=== PATIENT | female | born 1995 | race Caucasian/White ===

== ENCOUNTER 2019-06-23 10:53 | Emergency (ER) | payer OTHER, SELFPAY ==
[2019-06-23 11:09] VITALS: BP 111/63; PULSE 83; RESP 16; TEMP 36.8; O2SAT 98
--- NOTE | 2019-06-23 11:21 | ED.URI ---
HPI - URI/Sore Throat General Chief Complaint: Unspecified Stated Complaint: sore throat Time Seen by Provider: 06/23/19 11:13 Source: patient and RN notes reviewed Mode of arrival: ambulatory Limitations: no limitations History of Present Illness HPI Narrative: Pt is a 23 y/o female who presents to the ED with c/o sore throat starting 4 days ago. She notes that her pain is aggravated with swallowing. Pt states that she has also had a mild cough, rhinorrhea, sinus congestion, and chills, but denies any fever. She denies any chance of being . MD elicited complaint: sore throat Onset (ago): day(s) (4) Exacerbating factors: swallowing Associated symptoms: chills, rhinorrhea, nasal congestion and cough Related Data Allergies Allergy/AdvReac Type Severity Reaction Status Date / Time strawberry Allergy Severe Anaphylactic Verified 06/23/19 11:26 Shock amoxicillin Allergy Unknown RASH Verified 06/23/19 11:26 cinnamon Allergy Unknown Anaphylactic Verified 06/23/19 11:26 Shock Review of Systems Review of Systems: All systems reviewed & are unremarkable except as noted in HPI and below Constitutional: Constitutional: Reports chills and Denies fever(s) ENT: Reports nasal congestion, Reports nasal discharge and Reports sore throat Respiratory: Respiratory: Reports cough PMFSH Past Medical History Medical History (Updated 06/23/19 @ 12:01 by Jt Butler DO) URI (upper respiratory infection) UTI (urinary tract infection) Surgical History Surgical History No significant past surgical history Social History Social History Smoking status: Former smoker Gender identity (if verbalized by the patient): Female Exam Narrative: Exam Narrative: APPEARANCE: No acute distress, nontoxic, resting in bed EYES: EOMI HEENT: Normocephalic, atraumatic, TMs clear bilaterally, bilateral turbinates boggy, mild erythema no exudate posterior pharynx bilateral tonsils, uvula midline, no trismus Neck: Supple, no cervical lymphadenopathy RESPIRATORY: No respiratory distress Clear to auscultation bilaterally with no rhonchi wheezing or rales. CARDIOVASCULAR: Regular rate and rhythm without murmurs rubs or gallops. ABDOMINAL: Soft, nontender, nondistended, no rebound or guarding MUSCULOSKELETAl: Moves all extremities. No clubbing, cyanosis or edema. NEURO: Awake and alert. Following commands, speech normal, no focal deficits SKIN:: Warm, dry. No rashes lesions or abrasions PSYCHIATRIC: Normal affect/mood, Course Course Emergency Course: Reviewed old records Discussed with patient results of workup and diagnosis. Discussed need for follow-up with primary care, proper use of medication, and reasons to return to the emergency department. Patient understands and agrees to current treatment plan Vital Signs Vital signs: Vital Signs Temperature 98.3 F 06/23/19 11:09 Pulse Rate 83 06/23/19 11:09 Respiratory Rate 16 06/23/19 11:09 Blood Pressure 111/63 06/23/19 11:09 Pulse Oximetry 98 06/23/19 11:09 Temperature 98.3 F 06/23/19 11:09 Pulse Rate 83 06/23/19 11:09 Respiratory Rate 16 06/23/19 11:09 Blood Pressure 111/63 06/23/19 11:09 Pulse Oximetry 98 06/23/19 11:09 MDM - URI/Sore Throat Lab Data Labs: Influenza A Screen Negative Reference Range: Negative Influenza B Screen Negative Reference Range: Negative Discharge Plan Discharge Clinical Impression: Pharyngitis Patient Disposition: Home, Self-Care Condition: Stable Instructions: Antibiotic Form, Pharyngitis (ED) Additional Instructions: Return for increasing pain, inability to swallow, fever or any other symptoms of concern Prescriptions: New ibuprofen [IBU] 600 mg tablet 600 mg PO Q6H PRN (Reason: pain) Qty: 20 RF: 0 azithromycin [Zithromax Z-Brent] 250 mg tablet
[2019-06-23] MEDS: IBUPROFEN 600 MG TABLET PO (11:26)
== END 2019-06-23 12:25 | disposition home or self-care (01) ==
PROVIDERS: Emergency Provider Emergency Medicine
DX: J02.9 Acute pharyngitis, unspecified (principal); Z87.440 Personal history of urinary (tract) infections; Z87.891 Personal history of nicotine dependence
CPT/HCPCS: 87081; 87804; 87880; 99283; A9270

== ENCOUNTER 2019-07-09 19:35 | Emergency (ER) | payer OTHER, SELFPAY ==
[2019-07-09 19:43] VITALS: BP 129/72; PULSE 62; RESP 17; TEMP 37; O2SAT 100
[2019-07-09 20:00] VITALS: BP 134/84; PULSE 64; RESP 18; TEMP 36.2; O2SAT 100
[2019-07-09 20:23] LABS: Add Urine Microscopic? NO; Appearance Urine Clear (Clear); Bilirubin Urine Negative (Negative); Blood Urine Negative (Negative); Color Urine Yellow (Yellow); Glucose Urine UA Negative (Negative); Ketones Urine Negative (Negative); Leukocyte Esterase Ur Negative LEU/UL (Negative); Nitrate Urine Negative (Negative); Protein Urine Negative (Negative); Urobilinogen Urine Negative mg/dL (<2.0)
--- NOTE | 2019-07-09 20:24 | ED.ABDPAIN ---
HPI - Abdominal Pain General Chief Complaint: Abdominal Pain Stated Complaint: abd pain Time Seen by Provider: 07/09/19 20:06 Source: patient and RN notes reviewed Mode of arrival: ambulatory Limitations: no limitations History of Present Illness HPI narrative: Pt is a 23 y/o female who presents to the ED with c/o intermittent lt sided ABD pain starting roughly 2 weeks ago. She notes that she was recently evaluated in the [facility] ED for a sore throat. Pt states that she is still currently having swelling in the lt side of her throat. She notes that she has had intermittent lt sided ABD pain over the past several weeks. Pt states that she has recently been having nausea and diarrhea shortly after she eats. She denies any fever, vomiting, dysuria, hematuria. Pt states that she has been taking Ibuprofen for her symptoms. MD elicited complaint: abdominal pain Onset (ago): week(s) (2) Pain Consistency: intermittent Location: other (lt side of ABD) Associated symptoms: nausea, diarrhea and other (swelling in lt side of throat) Treatments prior to arrival: NSAIDs (Ibuprofen) Related Data Allergies Allergy/AdvReac Type Severity Reaction Status Date / Time strawberry Allergy Severe Anaphylactic Verified 06/23/19 11:26 Shock amoxicillin Allergy Unknown RASH Verified 06/23/19 11:26 cinnamon Allergy Unknown Anaphylactic Verified 06/23/19 11:26 Shock Review of Systems Review of Systems: Narrative: CONSTITUTIONAL: Denies fever, chills, or sweats. ENT: Denies rhinorrhea, congestion, sore throat, or otalgia. Reports swelling in lt side of throat. GASTROINTESTINAL: Reports lt sided abdominal pain, nausea, and diarrhea. Denies vomiting. GENITOURINARY: Denies dysuria or hematuria. SKIN: Denies rash or itching. All systems reviewed & are unremarkable except as noted in HPI and below PMFSH Past Medical History Medical History URI (upper respiratory infection) UTI (urinary tract infection) Surgical History Surgical History (Updated 07/09/19 @ 20:35 by Omer Metzger) Hx of cholecystectomy Social History Social History Smoking status: Former smoker Gender identity (if verbalized by the patient): Female Exam Narrative: Exam Narrative: GENERAL: Well-appearing, obese, and in no acute distress. HEAD: Normocephalic, atraumatic. EYES: PERRLA and EOMI. ENT: Nares clear, no rhinorrhea or epistaxis. Mucous membranes moist. Lt tonsillar edema. No erythema. No tonsillar exudate. Uvula midline. No trismus. No petechia of the hard palate. NECK: Supple. No cervical lymphadenopathy. CHEST: Clear to auscultation. No respiratory distress. HEART: Regular rate and rhythm. No murmur heard. Normal peripheral pulses. ABDOMEN: Soft, nontender, nondistended, normal active bowel sounds. No flank tenderness. EXTREMITIES: Normal range of motion. No edema. SKIN: Warm, dry, no rash. NEURO: No focal deficits. Alert and oriented. Course Vital Signs Vital signs: Vital Signs Temperature 37.0 C 07/09/19 19:43 Pulse Rate 62 07/09/19 19:43 Respiratory Rate 17 07/09/19 19:43 Blood Pressure 129/72 07/09/19 19:43 Pulse Oximetry 100 07/09/19 19:43 Temperature 36.2 C L 07/09/19 20:00 Pulse Rate 64 07/09/19 20:00 Respiratory Rate 18 07/09/19 20:00 Blood Pressure 134/84 07/09/19 20:00 Pulse Oximetry 100 07/09/19 20:00 MDM - Abdominal Pain MDM Narrative Medical decision making narrative: Patient presented for chronic intermittent diarrhea and abdominal cramping which has resolved at the time of assessment. Patient has had no vomiting or fever. No recent travel. Patient states her symptoms seem to come and go and this is been going on for several weeks. Patient well-appearing, benign abdominal exam and stable vital signs. Doubt appendicitis as she has no fever, no right lower quadrant pain. No evidence of UTI. No hematuria
[2019-07-09 20:25] LABS: Basophils Absolute Auto 0.1 K/mm3 (0.0-0.1); Basophils Percent Auto 0.7 % (0.2-1.2); Eosinophils Absolute Auto 0.3 K/mm3 (0-0.3); Eosinophils Percent Auto 2.9 % (0-4.4); Hematocrit 41.5 % (37.0-47.0); Immature Granulocyte Absolute 0.03 K/mm3 (0.00-0.031); Immature Granulocyte Percent A 0.3 % (0-0.5); Lymphocytes Absolute Auto 3.37 K/mm3 (0.9-3.2); Lymphocytes Percent Auto 31.7 % (18.3-44.2); Mean Corpuscular HGB Conc 31.3 g/dl (32-36); Mean Corpuscular Hemoglobin 25.9 pg (26-34); Mean Corpuscular Volume 82.8 fl (80-100); Mean Platelet Volume 10.7 fl (7.4-10.4); Monocytes Absolute Auto 0.8 K/mm3 (0.1-0.6); Monocytes Percent Auto 7.2 % (2.6-8.5); Neutrophils Absolute Auto 6.1 K/mm3 (1.3-6.7); Neutrophils Percent Auto 57.2 % (45.5-73.1); Platelet Count Result 235 k/mm3 (150-375); Red Blood Count 5.01 M/mm3 (4.2-5.4); Red Cell Distribution Width 13.7 % (11.5-14.5); White Blood Count 10.6 K/mm3 (4.5-10.0)
[2019-07-09 20:37] LABS: Alanine Aminotransferase 33 U/L (4-35); Albumin Level 4.5 g/dL (3.5-5.1); Alkaline Phosphatase 60 U/L (38-126); Aspartate Amino Transferase 32 U/L (14-36); Bilirubin,Total 0.5 mg/dL (0.2-1.3); Blood Urea Nitrogen 8 mg/dL (7-17); Calcium 9.5 mg/dL (8.4-10.2); Carbon Dioxide 25 mmol/L (22-30); Chloride 101 mmol/L (98-107); Estimated CRCL calculation 153 ml/min; Estimated Glomerular Filt Rate > 60; Glucose 100 mg/dL (65-105); Lipase 51 U/L (23-300); Potassium 4.2 mmol/L (3.4-5.0); Sodium 139 mmol/L (137-145)
[2019-07-09 21:08] VITALS: BP 132/81; PULSE 91; RESP 16; TEMP 36.3; O2SAT 100
== END 2019-07-09 21:21 | disposition home or self-care (01) ==
PROVIDERS: Emergency Medicine; Emergency Provider Emergency Medicine
DX: R19.7 Diarrhea, unspecified (principal)
CPT/HCPCS: 36415; 80053; 81003; 81025; 83690; 85025; 99283

== ENCOUNTER 2019-09-19 21:46 | Emergency (ER) | payer OTHER, SELFPAY ==
[2019-09-19 21:49] VITALS: BP 135/75; PULSE 84; RESP 18; TEMP 36.6; O2SAT 100
--- NOTE | 2019-09-19 23:38 | ED.GENADULT ---
HPI - General Adult General Chief complaint: Unspecified Stated complaint: sinus congestion Time Seen by Provider: 09/19/19 22:17 Source: patient Mode of arrival: ambulatory Limitations: no limitations History of Present Illness HPI narrative: Patient is a 23-year-old female who presents to the emergency department with complaint of sinus pressure and headache. Patient reports onset of symptoms approximately 5 days ago. Patient states she has a history of seasonal allergies. She has noticed sinus pressure and headache that she describes as throbbing. She has had postnasal drip and some itching. Patient denies any fever, chills, sore throat, runny nose, cough, or other illness symptoms. Patient has been using [id number] Flonase spray and Mucinex for symptoms without relief. Patient contacted her primary care and cannot be seen until September 29. Onset (ago): day(s) Location: head and face Related Data Allergies Allergy/AdvReac Type Severity Reaction Status Date / Time strawberry Allergy Severe Anaphylactic Verified 09/19/19 23:30 Shock amoxicillin Allergy Unknown RASH Verified 09/19/19 23:30 cinnamon Allergy Unknown Anaphylactic Verified 09/19/19 23:30 Shock Review of Systems Review of Systems: All systems reviewed & are unremarkable except as noted in HPI and below Constitutional: Constitutional: Denies chills and Denies fever(s) ENT: Denies otalgia, Reports facial pain, Reports headache(s), Reports epistaxis, Denies nasal discharge, Reports post nasal drip, Reports sinus pain, Reports sinus pressure and Denies sore throat Respiratory: Respiratory: Denies cough Gastrointestinal: Gastrointestinal: Denies diarrhea, Denies nausea and Denies vomiting PMFSH Past Medical History Medical History URI (upper respiratory infection) UTI (urinary tract infection) Surgical History Surgical History Hx of cholecystectomy Social History Social History Smoking status: Former smoker Gender identity (if verbalized by the patient): Female Exam Const: General: cooperative, no acute distress and alert Nutritional Appearance: well nourished Orientation/consciousness: patient oriented x3 Limitations: no limitations HENMT: Ears: TM's normal bilaterally General nose exam: Normal external nose present and Normal nares present Face and sinus: sinuses nontender Resp: Effort & Inspection: normal respiratory effort Auscultation: clear to auscultation bilaterally Cardio: Rate: regular rate Rhythm: regular rhythm Skin: General skin exam: normal color Neuro: General: patient oriented x3 Cognition (Neuro): normal cognition Speech: normal speech Extrem: General: normal to inspection, full ROM and no clubbing, cyanosis or edema Psych: Mental Status: mental status grossly normal Affect: normal affect Attitude: cooperative Course Course Emergency Course: Patient with symptoms consistent with allergic sinusitis. Counseled patient on continued use of current medications and will add decongestant and allergy medications for additional symptom relief. Advised primary care follow-up at her upcoming appointment. Patient advised she does not have an infection at this time and does not require antibiotics. Vital Signs Vital signs: Vital Signs Temperature 97.9 F 09/19/19 21:49 Pulse Rate 84 09/19/19 21:49 Respiratory Rate 18 09/19/19 21:49 Blood Pressure 135/75 09/19/19 21:49 Pulse Oximetry 100 09/19/19 21:49 Temperature 97.9 F 09/19/19 21:49 Pulse Rate 74 09/20/19 00:14 Respiratory Rate 15 09/20/19 00:14 Blood Pressure 134/64 09/20/19 00:14 Pulse Oximetry 100 09/20/19 00:14 Medical Decision Making Vital Signs Vital Signs: Vital Signs Temperature 97.9 F 09/19/19 21:49 Pulse Rate 84 09/19/19 21:49
[2019-09-20 00:14] VITALS: BP 134/64; PULSE 74; RESP 15; O2SAT 100
== END 2019-09-20 00:50 | disposition home or self-care (01) ==
PROVIDERS: Emergency Provider Emergency Medicine
DX: J30.9 Allergic rhinitis, unspecified (principal); Z87.891 Personal history of nicotine dependence; Z87.440 Personal history of urinary (tract) infections
CPT/HCPCS: 99283

== ENCOUNTER 2019-10-25 22:02 | Emergency (ER) | payer OTHER, SELFPAY ==
--- NOTE | ~2019-10-25 | XR_ITS ---
EXAMINATION: XR ankle LT 2V DATE: 10/25/2019 22:27 INDICATION: Left ankle pain and swelling TECHNIQUE: Two views of the left ankle are obtained.. COMPARISON: None. FINDINGS: There is no fracture, dislocation, or subluxation. The bones, soft tissues, and joint space s are normal. IMPRESSION: 1. No acute osseous abnormality. Reviewed, dictated and finalized at location A.
[2019-10-25 22:05] VITALS: BP 117/74; PULSE 116; RESP 17; TEMP 37.2; O2SAT 99
--- NOTE | 2019-10-25 22:17 | ED.LOWEXIN ---
HPI - Extremity Injury (Lower) General Chief Complaint: Extremity Injury, Lower Stated Complaint: left ankle injury Time Seen by Provider: 10/25/19 22:13 History of Present Illness HPI Narrative: Twisted her ankle earlier today. Pain in lateral ankle with weight bearing. No pain at rest. Associated with tingling in the foot. No deformity. No prior injury. Related Data Allergies Allergy/AdvReac Type Severity Reaction Status Date / Time strawberry Allergy Severe Anaphylactic Verified 09/19/19 23:30 Shock amoxicillin Allergy Unknown RASH Verified 09/19/19 23:30 cinnamon Allergy Unknown Anaphylactic Verified 09/19/19 23:30 Shock Review of Systems Review of Systems: All systems reviewed & are unremarkable except as noted in HPI and below PMFSH Past Medical History Medical History URI (upper respiratory infection) UTI (urinary tract infection) Surgical History Surgical History Hx of cholecystectomy Social History Social History Smoking status: Former smoker Gender identity (if verbalized by the patient): Female Exam Const: General: no acute distress and alert Orientation/consciousness: patient oriented x3 HENMT: Head: normal to inspection Resp: Effort & Inspection: normal respiratory effort Cardio: Other: 2+ DP Skin: General skin exam: normal color Wounds: no wounds Neuro: General: patient oriented x3 and moves all extremities Speech: normal speech Extrem: Other: Swelling over left lateramaleolus. Tender over ATFL Course Vital Signs Vital signs: Vital Signs Temperature 37.2 C 10/25/19 22:05 Pulse Rate 116 H 10/25/19 22:05 Respiratory Rate 17 10/25/19 22:05 Blood Pressure 117/74 10/25/19 22:05 Pulse Oximetry 99 10/25/19 22:05 Temperature 36.7 C 10/25/19 23:10 Pulse Rate 101 H 10/25/19 23:10 Respiratory Rate 14 10/25/19 23:10 Blood Pressure 115/62 10/25/19 23:10 Pulse Oximetry 95 10/25/19 23:10 MDM - Extremity Injury (Lower) Differential Diagnosis Differential diagnosis: Likely ankle sprain and strain and ankle fracture Imaging Data Attestation: I personally reviewed and interpreted this imaging study as follows: My impression: No fracture. Discharge Plan Discharge Clinical Impression: Left ankle sprain Patient Disposition: Home, Self-Care Condition: Stable Instructions: Ankle Sprain (ED) Prescriptions: No Action nitrofurantoin monohyd/m-cryst [Macrobid] 100 mg capsule 100 mg PO Q12H 5 Days Qty: 10 RF: 0 lidocaine 4 % adhesive patch,medicated 1 patch TOPICAL Q24H 10 Days Qty: 10 RF: 0 phenazopyridine [Pyridium] 100 mg tablet 100 mg PO TID 5 Days Qty: 15 RF: 0 ibuprofen 400 mg tablet 400 mg PO TID PRN (Reason: fever or pain) 10 Days Qty: 30 RF: 0 acetaminophen [Tylenol] 325 mg capsule 325 mg PO ONCE 7 Days Qty: 30 RF: 0 ibuprofen 400 mg tablet 400 mg PO TID PRN (Reason: fever or pain) 10 Days Qty: 30 RF: 0 ibuprofen [IBU] 600 mg tablet 600 mg PO Q6H PRN (Reason: pain) Qty: 20 RF: 0 azithromycin [Zithromax Z-Brent] 250 mg tablet See Rx Instructions .ROUTE .COMPLEX Qty: 6 RF: 0 dicyclomine 10 mg capsule 10 mg PO BID 5 Days Qty: 10 RF: 0 fexofenadine [[place] Allergy] 180 mg tablet 180 mg PO DAILY Qty: 30 RF: 0 pseudoephedrine HCl [Sudafed 12 Hour] 120 mg tablet extended release 120 mg PO Q12H PRN (Reason: nasal congestion) Qty: 20 RF: 0 montelukast [Singulair] 10 mg tablet 10 mg PO DAILY Qty: 30 RF: 0 Interventions: Discharge Disposition Last Done: 10/25/19 23:10 IV Stop Time Documented Last Done: 10/25/19 23:12 Follow-up/Referrals: UNKNOWN,DOCTOR [Primary Care Provider] - Discharge Date/Time: 10/25/19 23:12
[2019-10-25 23:10] VITALS: BP 115/62; PULSE 101; RESP 14; TEMP 36.7; O2SAT 95
== END 2019-10-25 23:12 | disposition home or self-care (01) ==
PROVIDERS: Emergency Provider Emergency Medicine
DX: S93.402A Sprain of unspecified ligament of left ankle, initial encounter (principal); Z87.440 Personal history of urinary (tract) infections; Z87.891 Personal history of nicotine dependence; X50.9XXA Other and unspecified overexertion or strenuous movements or postures, initial encounter
CPT/HCPCS: 73600; 99283